=== PATIENT | female | born 1990 | race Caucasian/White ===

== ENCOUNTER 2017-09-23 11:55 | Emergency (ER) | payer MEDICAID ==
[2017-09-23] MEDS ORDERED: ACETAMINOPHEN 325 MG TABLET PO ONE (12:58)
--- NOTE | 2017-09-23 12:59 | ER Document Report ---
ED Extremity Problem, Lower - General Chief Complaint: Foot Injury Stated Complaint: FOOT INJURY Time Seen by Provider: 09/23/17 12:43 Mode of Arrival: Ambulatory Information source: Patient Notes: 27-year-old female presents to ED for complaint of right foot and toe pain. She states she stubbed her toe about 4 days ago and is been having severe pain. She states it does not bruise to the front of her foot. She states she smokes 5 cigarettes a day and drinks once a week. 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 TRAVEL OUTSIDE OF THE [place] IN LAST 30 DAYS: No - HPI Patient complains to provider of: Pain, Swelling Location: Foot, 5th Toe Occurred: Other - 4 days ago Where: Outdoors Onset/Duration: Gradual Quality of pain: Sharp Severity: Severe Pain Level: 5 Context: Stubbed Recent injury: No Associated symptoms: Painful ambulation Exacerbated by: Hanging down, Walking Relieved by: Elevation, Ice - Related Data Allergies/Adverse Reactions: No Known Allergies Allergy (Verified 09/23/17 11:56) Past Medical History - General Information source: Patient - Social History Smoking Status: Current Every Day Smoker Cigarette use (# per day): Yes - 5 per day Chew tobacco use (# tins/day): No Smoking Education Provided: Yes - 4 minutes Frequency of alcohol use: Rare Drug Abuse: None 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 Lives with: Family Family History: Reviewed & Not Pertinent Patient has suicidal ideation: No Patient has homicidal ideation: No - Past Medical History Cardiac Medical History: Reports: None Pulmonary Medical History: Reports: None EENT Medical History: Reports: None Neurological Medical History: Reports: Hx Migraine, Hx Seizures Endocrine Medical History: Reports: None Renal/ Medical History: Reports: None Malignancy Medical History: Reports: None GI Medical History: Reports: None Musculoskeltal Medical History: Reports Hx Musculoskeletal Trauma Skin Medical History: Reports None Psychiatric Medical History: Reports: None Traumatic Medical History: Reports: Hx Fractures Infectious Medical History: Reports: None Past Surgical History: Reports: Hx Inguinal Hernia, Hx Oral Surgery - Immunizations Immunizations up to date: Yes Hx Diphtheria, Pertussis, Tetanus Vaccination: Yes Review of Systems - Review of Systems Constitutional: No symptoms reported EENT: No symptoms reported Cardiovascular: No symptoms reported Respiratory: No symptoms reported Gastrointestinal: No symptoms reported Genitourinary: No symptoms reported Female Genitourinary: No symptoms reported Musculoskeletal: Other - Pain swelling to the right foot where she stubbed her toe 4 days ago Skin: No symptoms reported Hematologic/Lymphatic: No symptoms reported Neurological/Psychological: No symptoms reported -: Yes All other systems reviewed and negative Physical Exam - Vital signs Vitals: Temp Pulse Resp BP Pulse Ox 99.1 F 68 16 110/78 99 09/23/17 12:16 09/23/17 12:16 09/23/17 12:16 09/23/17 12:16 09/23/17 12:16 Interpretation: Normal - General General appearance: Appears well, Alert - HEENT Head: Normocephalic, Atraumatic Eyes: Normal Pupils: PERRL - Respiratory Respiratory status: No respiratory distress Chest status: Nontender Breath sounds: Normal Chest palpation: Normal - Cardiovascular Rhythm: Regular Heart sounds: Normal auscultation Murmur: No - Abdominal Inspection: Normal Distension: No distension Bowel sounds: Normal Tenderness: Nontender Organomegaly: No organomegaly - Back Back: Normal, Nontender - Extremities General upper extremity: Normal inspection, Nontender, Normal color, Normal ROM , Normal temperature General lower extremity: Normal inspection, Normal ROM, Normal temperature, Normal weight bearing. No: Alvin's sign Foot: Tender, Ecchymosis, Edema, Metatarsal compress. pain. No: Abrasion, Deformity, Instability, Laceration, Nail injury, Navicular tenderness, No evidence of FB, Puncture wound, Tender 5th metatarsal, Unable to bear weight - Neurological Neuro grossly intact: Yes Cognition: Normal Orientation: AAOx4 Kayley Coma Scale Eye Opening: Spontaneous Boron Coma Scale Verbal: Oriented Kayley Coma Scale Motor: Obeys Commands Boron Coma Scale Total: 15 Speech: Normal Motor strength normal: LUE, RUE, LLE, RLE Sensory: Normal - Psychological Associated symptoms: Normal affect, Normal mood - Skin Skin Temperature: Warm Skin Moisture: Dry Skin Color: Normal Course - Vital Signs Vital signs: Temp Pulse Resp BP Pulse Ox 98.3 F 50 L 16 132/85 H 100 09/23/17 15:20 09/23/17 15:20 09/23/17 15:20 09/23/17 15:20 09/23/17 15:20 - Diagnostic Test Radiology reviewed: Image reviewed, Reports reviewed Discharge - Discharge Clinical Impression: Contusion of foot including toes Qualifiers: Encounter type: initial encounter Laterality: right Qualified Code(s): S90.31XA - Contusion of right foot, initial encounter Condition: Stable Disposition: HOME, SELF-CARE Additional Instructions: CONTUSION: Your injury has resulted in a contusion -- a crushing of the deep tissues. No injury to important structures was detected during the physician's exam. Contusions vary in the amount of pain they cause, and in the length of time required for healing. Typically, the area will become bruised, and will remain painful to touch for two or three weeks. However, most patients are back to working and playing within a few days. After the initial period of rest and cold-packs, your symptoms (together with the doctor's recommendations) will determine how rapidly you can get back to full activity. Usually this means "do what feels okay, but don't do things that hurt." If re-examination was recommended, it's important to follow up as instructed. Call the doctor or return any time if pain increases, if swelling becomes severe, if you develop numbness or weakness in an injured extremity, or if any other alarming symptoms occur. USE OF TYLENOL (ACETAMINOPHEN): Acetaminophen may be taken for pain relief or fever control. It's much safer than aspirin, offering a wider range of "safe" dosages. It is safe during . Some brand names are Tylenol, Panadol, Datril, Anacin 3, Tempra, and Liquiprin. Acetaminophen can be repeated every four hours. The following are maximum recommended dosages: WEIGHT Dose Drops Elixir Chewable( 80mg) (LBS.) drprs=droppers tsp=teaspoon 6 40 mg 0.4 ml (1/2) 6-11 80 mg 0.8 ml (full) tsp 1 tab 12-16 120 mg 1 1/2 drprs 3/4 tsp 1 1/2 tabs 17-23 160 mg 2 drprs 1 tsp 2 tabs 24-30 240 mg 3 drprs 1 1/2 tsp 3 tabs 30-35 320 mg 2 tsp 4 tabs 36-41 360 mg 2 1/4 tsp 4 1/2 tabs 42-47 400 mg 2 1/2 tsp 5 tabs 48-53 480 mg 3 tsp 6 tabs 54-59 520 mg 3 1/4 tsp 6 1/2 tabs 60-64 560 mg 3 1/2 tsp 7 tabs 65-70 600 mg 3 3/4 tsp 7 1/2 tabs 71-76 640 mg 4 tsp 8 tabs 77-82 720 mg 4 1/2 tsp 9 tabs 83-88 800 mg 5 tsp 10 tabs >89 pounds or adults 650 mg to 900 mg Acetaminophen can be repeated every four hours. Maximum dose not to exceed 4000 mg a day. These maximum recommended dosages are slightly higher than the dosages written on the product container, but these dosages are very safe and below the toxic dosage for acetaminophen. ICE & ELEVATION: Apply ice packs frequently against the painful area. Many different schedules are recommended, such as "20 minutes on, 20 minutes off" or "one hour ice, two hours rest." If you need to work, you may need to go longer between ice treatments. You should plan to have the area ice packed AT LEAST one- fourth of the time. The ice should be applied over the wrap, tape, or splint, or over a layer of cloth -- not directly against the skin. Some ice bags have a built-in cloth and can be put directly on the skin. Your injured part should be elevated as much as possible over the next 48 hours. Try to keep the injury above the level of the heart. Avoid use of the injured area. Elevation and rest will decrease the swelling. USE OF TWRC-LJE-SEPWLUA IBUPROFEN: Ibuprofen (Advil, Nuprin, Medipren, Motrin IB) is a medication for fever and pain control. In addition, it has anti- inflammatory effects which may be beneficial, especially in the treatment of injuries. It's best to take ibuprofen with food. Persons with ulcer disease or allergy to aspirin should notify their physician of this before taking ibuprofen. Ibuprofen can be given every four to six hours, for a total of four doses daily. Age Pain or fever dose Antiinflammatory dose 6-8 yr 200 mg (1 tab) 200 mg (1 tab) 9-11 yr 200 mg (1 tab) 200-400 mg (1-2 tab) 11-14 yr 200-400 mg (1-2 tab) 400 mg (2 tab) 15-adult 400 mg (2 tab) 600 mg (3 tab) FOLLOW-UP CARE: If you have been referred to a physician for follow-up care, call the physician s office for an appointment as you were instructed or within the next two days. If you experience worsening or a significant change in your symptoms, notify the physician immediately or return to the Emergency Department at any time for re-evaluation. Forms: Return to Work Referrals: DIANDRA ASCENCIO DPM [ACTIVE STAFF] - Follow up as needed JESS RUBIO MD [ACTIVE STAFF] - Follow up as needed
--- NOTE | 2017-09-23 14:11 | RADIOLOGY REPORT (SQ) ---
EXAM DESCRIPTION: FOOT RIGHT COMPLETE COMPLETED DATE/TIME: 09/23/2017 1:19 pm REASON FOR STUDY: pain injury swelling COMPARISON: None. NUMBER OF VIEWS: Three views. TECHNIQUE: AP, lateral and oblique radiographic images acquired of the right foot. LIMITATIONS: None. FINDINGS: MINERALIZATION: Normal. BONES: No acute fracture or dislocation. No worrisome bone lesions. JOINTS: No effusions. SOFT TISSUES: No soft tissue swelling. No foreign body. OTHER: No other significant finding. IMPRESSION: NEGATIVE STUDY OF THE RIGHT FOOT. NO RADIOGRAPHIC EVIDENCE OF ACUTE INJURY. TECHNICAL DOCUMENTATION: JOB ID: [id number] [email or web address]- All Rights Reserved Reading location - IP/workstation name: [email or web address]
[2017-09-23 15:21] VITALS: BP 132/85
== END 2017-09-23 15:21 | disposition home or self-care (01) ==
LOC: ER 11:55
DX: S90.31XA Contusion of right foot, initial encounter (principal); M79.671 Pain in right foot; M79.674 Pain in right toe(s); M79.89 Other specified soft tissue disorders; W22.8XXA Striking against or struck by other objects, initial encounter; F17.210 Nicotine dependence, cigarettes, uncomplicated
CPT/HCPCS: 99406; 99283; 73630; J3490

== ENCOUNTER 2017-11-28 09:56 | Emergency (ER) | payer SELFPAY ==
--- NOTE | 2017-11-28 10:08 | ER Document Report ---
ED Medical Screen (RME) - General Chief Complaint: Vag Bleeding, +preg <12wks Stated Complaint: VAGINAL BLEEDING Time Seen by Provider: 11/28/17 10:06 Mode of Arrival: Ambulatory Information source: Patient Notes: This is a 27-year-old female 5 para 2 (2 miscarriages, one at 20 weeks gestation) who presents with vaginal bleeding and cramping in the setting of early . Patient's blood type is a positive. Patient last ate last night. She has no medical problems, no allergies and is on no medicines. TRAVEL OUTSIDE OF THE [place] IN LAST 30 DAYS: No - Related Data Allergies/Adverse Reactions: No Known Allergies Allergy (Verified 11/28/17 09:56) Past Medical History Neurological Medical History: Reports: Hx Migraine, Hx Seizures Renal/ Medical History: Denies: Hx Peritoneal Dialysis Musculoskeltal Medical History: Reports Hx Musculoskeletal Trauma Traumatic Medical History: Reports: Hx Fractures Past Surgical History: Reports: Hx Inguinal Hernia, Hx Oral Surgery - Immunizations Immunizations up to date: Yes Hx Diphtheria, Pertussis, Tetanus Vaccination: Yes Physical Exam - Vital signs Vitals: Temp Pulse Resp BP Pulse Ox 98.8 F 71 14 113/75 98 11/28/17 09:59 11/28/17 09:59 11/28/17 09:59 11/28/17 09:59 11/28/17 09:59 Course - Vital Signs Vital signs: Temp Pulse Resp BP Pulse Ox 98.8 F 71 14 113/75 98 11/28/17 09:59 11/28/17 09:59 11/28/17 09:59 11/28/17 09:59 11/28/17 09:59
[2017-11-28 10:40] LABS: ABSOLUTE EOSINOPHILS # (AUTO) 0.3 10^3/uL (0.0-0.6); ABSOLUTE LYMPHOCYTES (AUTO) 1.4 10^3/uL (0.5-4.7); ABSOLUTE MONOCYTES (AUTO) 0.5 10^3/uL (0.1-1.4); ABSOLUTE NEUT (AUTO) 3.9 10^3/uL (1.7-8.2); BASOPHILS % (AUTO) 0.5 % (0-2); EOSINOPHILS % (AUTO) 5.7 % (0-6); HEMATOCRIT 44.1 % (36.0-47.0); HEMOGLOBIN 15.2 g/dL (12.0-15.5); LYMPHOCYTES % (AUTO) 22.1 % (13-45); MEAN CORPUSCULAR HEMOGLOBIN 31.4 pg (27.0-33.4); MEAN CORPUSCULAR HGB CONC 34.4 g/dL (32.0-36.0); MEAN CORPUSCULAR VOLUME 91 fl (80-97); MONOCYTES % (AUTO) 8.5 % (3-13); PLATELET COUNT 302 10^3/uL (150-450); RED BLOOD COUNT 4.84 10^6/uL (3.72-5.28); RED CELL DISTRIBUTION WIDTH 13.3 % (11.5-14.0); SEGMENTED NEUTROPHILS % (AUTO) 63.2 % (42-78); TOTAL CELLS COUNTED % (AUTO) 100 %; WHITE BLOOD COUNT 6.1 10^3/uL (4.0-10.5)
[2017-11-28 11:16] LABS: APPEARANCE,URINE SLIGHTLY-CLOUDY; BILIRUBIN,URINE NEGATIVE (NEGATIVE); COLOR,URINE YELLOW; GLUCOSE, URINE NEGATIVE (NEGATIVE); KETONES,URINE NEGATIVE (NEGATIVE); LEUKOCYTE ESTERASE,URINE TRACE (NEGATIVE); NITRITE,URINE NEGATIVE (NEGATIVE); PROTEIN,URINE NEGATIVE (NEGATIVE); URINE SPECIFIC GRAVITY 1.025
--- NOTE | 2017-11-28 12:00 | RADIOLOGY REPORT (SQ) ---
EXAM DESCRIPTION: U/S OB TRANSVAGINAL W/O DOP COMPLETED DATE/TIME: 11/28/2017 11:17 am REASON FOR STUDY: vag bleed preg COMPARISON: 11/19/2012 TECHNIQUE: Transvaginal static and realtime grayscale images acquired of the pelvis. Additional collins cted spectral and color Doppler images recorded. All images stored on PACs. bHCG: Pending. CLINICAL DATES: Not Available. LIMITATIONS: None. FINDINGS: FETUS: No intrauterine gestational sac visualized. UTERUS: No masses. No anomalies. Measures 11.0 x 4.7 x 6.6 cm. Endometrium measures 9 mm. CERVICAL LENGTH: 3.6 cm Closed. RIGHT ADNEXA: Right ovary not visualized LEFT ADNEXA: Left ovary not visualized FREE FLUID: None. OTHER: No other significant finding. IMPRESSION: 1. An intrauterine gestational sac is not visualized. Recommend correlation with beta hCGs and short -term sonographic follow-up. 2. Nonvisualization of the ovaries. Trimester of : First - 0 to 13 weeks. TECHNICAL DOCUMENTATION: JOB ID: [id number] [email or web address]- All Rights Reserved rev-08/28 Reading location - IP/workstation name: [email or web address]
--- NOTE | 2017-11-28 12:29 | ER Document Report ---
ED General - General Chief Complaint: Vag Bleeding, +preg <12wks Stated Complaint: VAGINAL BLEEDING Time Seen by Provider: 11/28/17 10:06 Mode of Arrival: Ambulatory TRAVEL OUTSIDE OF THE [place] IN LAST 30 DAYS: No - HPI Patient complains to provider of: Vaginal bleeding positive Notes: Patient coming in for positive test and vaginal bleeding. Patient states she took a home for urgency test approximately 1 week ago and started expressing vaginal bleeding today. Patient states she is having significant abdominal cramping with passage of large blood clots. Patient denies any nausea vomiting fevers or chills. Patient resting company for my evaluation. Patient states bleeding started earlier this morning. - Related Data Allergies/Adverse Reactions: No Known Allergies Allergy (Verified 11/28/17 09:56) Past Medical History - General Information source: Patient - Social History Smoking Status: Current Some Day Smoker Frequency of alcohol use: None Drug Abuse: Marijuana Family History: Reviewed & Not Pertinent Patient has suicidal ideation: No Patient has homicidal ideation: No Neurological Medical History: Reports: Hx Migraine, Hx Seizures Renal/ Medical History: Denies: Hx Peritoneal Dialysis Musculoskeletal Medical History: Reports Hx Musculoskeletal Trauma Traumatic Medical History: Reports: Hx Fractures Past Surgical History: Reports: Hx Inguinal Hernia, Hx Oral Surgery - Immunizations Immunizations up to date: Yes Hx Diphtheria, Pertussis, Tetanus Vaccination: Yes Review of Systems - Review of Systems Constitutional: No symptoms reported EENT: No symptoms reported Cardiovascular: No symptoms reported Respiratory: No symptoms reported Gastrointestinal: No symptoms reported Genitourinary: No symptoms reported Female Genitourinary: Vaginal bleeding Musculoskeletal: No symptoms reported Skin: No symptoms reported Hematologic/Lymphatic: No symptoms reported Neurological/Psychological: No symptoms reported -: Yes All other systems reviewed and negative Physical Exam - Vital signs Vitals: Temp Pulse Resp BP Pulse Ox 98.8 F 71 14 113/75 98 11/28/17 09:59 11/28/17 09:59 11/28/17 09:59 11/28/17 09:59 11/28/17 09:59 Interpretation: Normal - General General appearance: Appears well, Alert - HEENT Head: Normocephalic, Atraumatic Eyes: Normal Pupils: PERRL - Respiratory Respiratory status: No respiratory distress Chest status: Nontender Breath sounds: Normal Chest palpation: Normal - Cardiovascular Rhythm: Regular Heart sounds: Normal auscultation Murmur: No - Abdominal Inspection: Normal Distension: No distension Bowel sounds: Normal Tenderness: Nontender Organomegaly: No organomegaly - Back Back: Normal, Nontender - Extremities General upper extremity: Normal inspection, Nontender, Normal color, Normal ROM , Normal temperature General lower extremity: Normal inspection, Nontender, Normal color, Normal ROM , Normal temperature, Normal weight bearing. No: Alvin's sign - Neurological Neuro grossly intact: Yes Cognition: Normal Orientation: AAOx4 Joanna Coma Scale Eye Opening: Spontaneous Joanna Coma Scale Verbal: Oriented Kayley Coma Scale Motor: Obeys Commands Kayley Coma Scale Total: 15 Speech: Normal Motor strength normal: LUE, RUE, LLE, RLE Sensory: Normal - Psychological Associated symptoms: Normal affect, Normal mood - Skin Skin Temperature: Warm Skin Moisture: Dry Skin Color: Normal Course - Re-evaluation Re-evalutation: 11/28/17 15:38 Patient coming in for a positive home pending test and vaginal bleeding. Patient has no signs of present hormone and her blood work and a negative ultrasound. Unclear if this is patient's normal menstrual cycle or if the patient did have a miscarriage however patient is very insistent that she had a positive test at home. There is my suspicion is this case and the more likely she miscarried patient will be discharged on follow-up with HOSTEL MANAGER. - Vital Signs Vital signs: Temp Pulse Resp BP Pulse Ox 98.8 F 71 14 113/75 98 11/28/17 09:59 11/28/17 09:59 11/28/17 09:59 11/28/17 09:59 11/28/17 09:59 - Laboratory Result Diagrams: 11/28/17 10:28 Laboratory results interpreted by me: 11/28/17 10:45 Urine Blood LARGE H Urine Urobilinogen 2.0 H Ur Leukocyte Esterase TRACE H Discharge - Discharge Clinical Impression: Miscarriage Condition: Good Disposition: HOME, SELF-CARE Instructions: Miscarriage (OM) Additional Instructions: Your laboratory studies today and ultrasound that showed any signs of . More likely year he had experienced a miscarriage. Please follow- up with your HOSTEL MANAGER and return to the ER symptoms worsen. I would recommend taking Tylenol and Motrin for pain. I will prescribe you Zofran for nausea and Bentyl for abdominal cramping. Prescriptions: Dicyclomine HCl [Bentyl 20 mg Tablet] 20 mg PO QID #30 tablet Ondansetron [Zofran Odt] 4 mg PO Q6 PRN #30 tab.rapdis PRN Reason: For Nausea/Vomiting Forms: Return to Work
[2017-11-28 12:54] VITALS: BP 109/61
== END 2017-11-28 12:52 | disposition home or self-care (01) ==
LOC: ER 09:56
DX: O03.9 Complete or unspecified spontaneous abortion without complication (principal); R10.9 Unspecified abdominal pain; F12.10 Cannabis abuse, uncomplicated
CPT/HCPCS: 36415; 76817; 81001; 84702; 85025; 99284

== ENCOUNTER 2018-04-06 14:12 | Emergency (ER) | payer SELFPAY ==
[2018-04-06 14:20] VITALS: BP 114/76
[2018-04-06] MEDS ORDERED: LORATADINE 10 MG TABLET PO ONE (14:54)
[2018-04-06] MEDS ORDERED: GUAIFENESIN 600 MG TABLET.SA PO ONE (14:54)
[2018-04-06] MEDS ORDERED: PSEUDOEPHEDRINE HCL 30 MG TABLET PO ONE (14:54)
--- NOTE | 2018-04-06 15:05 | ER Document Report ---
ED ENT - General Chief Complaint: Cough Stated Complaint: COUGH Time Seen by Provider: 04/06/18 14:43 Mode of Arrival: Ambulatory Information source: Patient Notes: 27-year-old female presented to ED for cough cold congestion runny nose and pain to the right ear for 3 weeks. She states she has some amoxicillin left over from something within the last 6 months but she does not remember what but she did not think she needed anymore so she quit taking it. She states she took Mucinex for a while and it did not seem to help and she took ibuprofen that is not seem to help so she came to the emergency room today on [place]. Patient is alert oriented respirations regular and unlabored O2 sats 98% afebrile. TRAVEL OUTSIDE OF THE [place] IN LAST 30 DAYS: No - HPI Patient complains to provider of: Ear problem, Nose problem Onset: Other - 3 weeks Onset/Duration: Gradual Severity: Mild Pain Level: 2 Context: Recent Illness Location of pain: Ears, Nose, Sinus Associated symptoms: Congestion, Cough, Ear pain - Right ear, Runny nose, Sinus pain, Sinus drainage. 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 Lives with: Family, Parents Family History: Reviewed & Not Pertinent Patient has suicidal ideation: No Patient has homicidal ideation: No - Past Medical History Cardiac Medical History: Reports: None Pulmonary Medical History: Reports: None EENT Medical History: Reports: None Neurological Medical History: Reports: Hx Migraine, Hx Seizures Endocrine Medical History: Reports: None Renal/ Medical History: Reports: None Malignancy Medical History: Reports: None GI Medical History: Reports: None Musculoskeletal Medical History: Reports Hx Musculoskeletal Trauma - Finger fracture Skin Medical History: Reports None Psychiatric Medical History: Reports: None Traumatic Medical History: Reports: Hx Fractures - Finger Infectious Medical History: Reports: None Past Surgical History: Reports: Hx Inguinal Hernia, Hx Oral Surgery - Immunizations Immunizations up to date: Yes Hx Diphtheria, Pertussis, Tetanus Vaccination: Yes Review of Systems - Review of Systems Constitutional: Recent illness EENT: Ear pain, Nose congestion, Nose discharge, Sinus pressure, Sinus discharge Cardiovascular: No symptoms reported Respiratory: Cough Gastrointestinal: No symptoms reported Genitourinary: No symptoms reported Female Genitourinary: No symptoms reported Musculoskeletal: No symptoms reported Skin: No symptoms reported Hematologic/Lymphatic: No symptoms reported Neurological/Psychological: No symptoms reported -: Yes All other systems reviewed and negative Physical Exam - Vital signs Vitals: Temp Pulse Resp BP Pulse Ox 98.7 F 83 20 114/76 98 04/06/18 14:18 04/06/18 14:18 04/06/18 14:18 04/06/18 14:18 04/06/18 14:18 Interpretation: Normal - General General appearance: Appears well, Alert - HEENT Head: Normocephalic, Atraumatic Eyes: Normal Pupils: PERRL Ears: Normal External canal: Normal Sinus: Normal Nasal: Purulent discharge, Swelling Mouth/Lips: Normal Mucous membranes: Normal Pharynx: Post nasal drainage Neck: Normal - Respiratory Respiratory status: No respiratory distress Chest status: Nontender Breath sounds: Nonproductive cough Chest palpation: Normal - Cardiovascular Rhythm: Regular Heart sounds: Normal auscultation Murmur: No - Abdominal Inspection: Normal Distension: No distension Bowel sounds: Normal Tenderness: Nontender Organomegaly: No organomegaly - Back Back: Normal, Nontender - Extremities General upper extremity: Normal inspection, Nontender, Normal color, Normal ROM, Normal temperature General lower extremity: Normal inspection, Nontender, Normal color, Normal ROM, Normal temperature, Normal weight bearing. No: Alvin's sign - Neurological Neuro grossly intact: Yes Cognition: Normal Orientation: AAOx4 [place] Coma Scale Eye Opening: Spontaneous [place] Coma Scale Verbal: Oriented [place] Coma Scale Motor: Obeys Commands [place] Coma Scale Total: 15 Speech: Normal Motor strength normal: LUE, RUE, LLE, RLE Sensory: Normal - Psychological Associated symptoms: Normal affect, Normal mood - Skin Skin Temperature: Warm Skin Moisture: Dry Skin Color: Normal Course - Re-evaluation Re-evalutation: 04/06/18 15:17 Assessment consistent with an upper respiratory infection. At first patient wanted a chest x-ray and then she decided since her children were waiting in the car that she did not want to just x-rays of the chest x-ray was canceled. Patient has a upper respiratory infection and her lungs were clear. After performing a Medical Screening Examination, I estimate there is LOW risk for ACUTE CORONARY SYNDROME, RESPIRATORY FAILURE, SEPSIS OR MENINGITIS, thus I consider the discharge disposition reasonable. I have reevaluated this patient multiple times and no significant life threatening changes are noted. The patient and I have discussed the diagnosis and risks, and we agree with discharging home with close follow-up. We also discussed returning to the Emergency Department immediately if new or worsening symptoms occur. We have discussed the symptoms which are most concerning (e.g., changing or worsening pain, trouble swallowing or breathing, neck stiffness, fever) that necessitate immediate return. - Vital Signs Vital signs: Temp Pulse Resp BP Pulse Ox 98.7 F 83 20 114/76 98 04/06/18 14:18 04/06/18 14:18 04/06/18 14:18 04/06/18 14:18 04/06/18 14:18 Discharge - Discharge Clinical Impression: URI (upper respiratory infection) Qualifiers: URI type: unspecified URI Qualified Code(s): J06.9 - Acute upper respiratory infection, unspecified Condition: Stable Disposition: HOME, SELF-CARE Instructions: Family Physicians / Practices Additional Instructions: UPPER RESPIRATORY ILLNESS: You have a viral infection of the respiratory passages -- a "cold." This common infection causes nasal congestion, drainage, and often sore throat and cough. It is highly contagious. The disease usually lasts about 10 to 14 days. There is no "cure" for the viral infection -- it must run its course. If there is a complication, such as bacterial infection in the nose, sinuses, middle ear, or bronchial tubes, antibiotics may be required. The antibiotics won't affect the virus. Drink plenty of fluids. A humidifier may help. An expectorant medication or decongestant may make you more comfortable. Use acetaminophen or ibuprofen for fever or aches. See the doctor if fever persists over two days, if there is any significant worsening of your symptoms, or if you simply fail to improve as expected. DECONGESTANT MEDICATION: A decongestant medicine has been suggested. Often this medicine is combined in the same tablet with an antihistamine or expectorant. This type of medicine is helpful in treating a bad cold or sinus condition, as well as in treatment of the nasal congestion of hay fever. It is not of much benefit for lung infections. Decongestant medicines are related to stimulants. They can cause an increase in blood pressure and heart rate. Persons with heart disease and high blood pressure should not take decongestants without discussing this with the physician. If you develop palpitations, chest pain, headache, or tremors, stop the medicine and consult your physician. COUGH-SUPPRESSANT & EXPECTORANT MEDICATION: You are to use a cough medication as needed for relief of symptoms. This medicine is a combination of an expectorant (to make the mucous thinner and more easily "coughed up") and a cough suppressant (to reduce the frequency of coughing). The cough-suppressant medicine is related to narcotics. You may experience mild nausea and sleepiness. Some patients who are very sensitive to narcotics may have stomach pain from this medicine. Taking the medicine with food reduces these side effects. Do not drive or work with machinery until you know how this medicine affects you. The expectorant should have no side effects. Iodine-containing expectorants (such as organidin) should not be taken by persons with active thyroid disease unless approved by your doctor. Call the doctor if you develop shortness of breath, hives, rash, itching, lightheadedness, or severe nausea and vomiting. USE OF ACETAMINOPHEN (Tylenol): Acetaminophen may be taken for pain relief or fever control. It's much safer than aspirin, offering a wider range of "safe" dosages. It is safe during . Some brand names are Tylenol, Panadol, Datril, Anacin 3, Tempra, and Liquiprin. Acetaminophen can be repeated every four hours. The following are maximum recommended dosages: >89 pounds or adults 650 mg to 900 mg Acetaminophen can be repeated every four hours. Maximum dose not to exceed 4000 mg a day. SMOKING: If you smoke, you should stop smoking. The tar and chemicals in cigarette smoke are harmful. Smoking has been shown to cause: emphysema chronic bronchitis lung cancer mouth and throat cancer stomach and pancreas cancer premature aging defects In addition, smoking increases ear and lung infections in children of smokers. You have been treated with Claritin 10 mg, Sudafed 30 mg, Mucinex 600 mg in the emergency room. You have elected not to have a chest x-ray at this time as your lungs are clear. These are all [id number] medications another thing that would help you would be some Flonase nasal spray. This is a steroid that will help the inflammation in your nasal passage. Also Chloraseptic spray will help with your sore throat. Salt and soda gargles will help with the drainage down the back your throat. Salt and soda solution 1 quart of water 1 tablespoon of salt 1 teaspoon of baking soda Mixed 3 ingredients together and boil for 1 minute Placed in a covered quart jar Use 1/2 ounce of cold solution to gargle 3 times a day FOLLOW-UP CARE: If you have been referred to a physician for follow-up care, call the physicians office for an appointment as you were instructed or within the next two days. If you experience worsening or a significant change in your symptoms, notify the physician immediately or return to the Emergency Department at any time for re-evaluation. Forms: Smoking Cessation Education
== END 2018-04-06 15:11 | disposition home or self-care (01) ==
LOC: ER 14:12
DX: J06.9 Acute upper respiratory infection, unspecified (principal); F17.210 Nicotine dependence, cigarettes, uncomplicated
CPT/HCPCS: 99283; 99406

== ENCOUNTER 2018-06-27 15:19 | Emergency (ER) | payer SELFPAY ==
--- NOTE | 2018-06-27 15:50 | ER Document Report ---
ED Medical Screen (RME) - General Chief Complaint: Vaginal Discharge Stated Complaint: INFECTION Time Seen by Provider: 06/27/18 15:47 Notes: Patient is concerned that she may have a retained tampon. She thinks that the tampon has been in her vagina for 4-5 days. She has had some cramping, but no real significant pain. She has had a small amount of foul-smelling discharge at times. No other significant past medical history. TRAVEL OUTSIDE OF THE [place] IN LAST 30 DAYS: No - Related Data Allergies/Adverse Reactions: No Known Allergies Allergy (Verified 04/06/18 14:13) Past Medical History Neurological Medical History: Reports: Hx Migraine, Hx Seizures Renal/ Medical History: Denies: Hx Peritoneal Dialysis Musculoskeltal Medical History: Reports Hx Musculoskeletal Trauma - Finger fracture Traumatic Medical History: Reports: Hx Fractures - Finger Past Surgical History: Reports: Hx Abdominal Surgery - hernia, Hx Inguinal Hernia, Hx Oral Surgery - Immunizations Immunizations up to date: Yes Hx Diphtheria, Pertussis, Tetanus Vaccination: Yes Physical Exam - Vital signs Vitals: Temp Pulse Resp BP Pulse Ox 98.4 F 90 20 144/89 H 99 06/27/18 15:22 06/27/18 15:22 06/27/18 15:22 06/27/18 15:22 06/27/18 15:22 Course - Vital Signs Vital signs: Temp Pulse Resp BP Pulse Ox 98.4 F 90 20 144/89 H 99 06/27/18 15:22 06/27/18 15:22 06/27/18 15:22 06/27/18 15:22 06/27/18 15:22
--- NOTE | 2018-06-27 16:39 | ER Document Report ---
ED General - General Chief Complaint: Vaginal Discharge Stated Complaint: INFECTION Time Seen by Provider: 06/27/18 15:47 Notes: Patient is a 27-year-old female who presents emergency department with a chief complaint of a tampon stuck in her vagina. She is 90% sure that she has a tampon stuck in there. She states that the tampon has been in for the past 5 days. She states that she stopped her period about 3 days ago. She denies any abdominal pain, fever, nausea, vomiting, or diarrhea. She admits to having a foul odor and clear drainage from the area. She states that she has been sexually active about a month ago, with her who is apparently in penitentiary. She has no concerns for any STDs at this time, but is concerned about a possible yeast infection. TRAVEL OUTSIDE OF THE [place] IN LAST 30 DAYS: No - Related Data Allergies/Adverse Reactions: No Known Allergies Allergy (Verified 04/06/18 14:13) Past Medical History - Social History Smoking Status: Current Every Day Smoker Family History: Reviewed & Not Pertinent Patient has suicidal ideation: No Patient has homicidal ideation: No Neurological Medical History: Reports: Hx Migraine, Hx Seizures Renal/ Medical History: Denies: Hx Peritoneal Dialysis Musculoskeletal Medical History: Reports Hx Musculoskeletal Trauma - Finger fracture Traumatic Medical History: Reports: Hx Fractures - Finger Past Surgical History: Reports: Hx Abdominal Surgery - hernia, Hx Inguinal Hernia, Hx Oral Surgery - Immunizations Immunizations up to date: Yes Hx Diphtheria, Pertussis, Tetanus Vaccination: Yes Review of Systems - Review of Systems Notes: REVIEW OF SYSTEMS: CONSTITUTIONAL : Denies recent illness. Denies recent unintentional weight loss. Denies fever, chills, or sweats. EENT: Denies eye, ear, throat, or mouth pain, discharge, or symptoms. Denies nasal or sinus congestion. CARDIOVASCULAR: Denies chest pain. RESPIRATORY: Denies shortness of breath, cough, congestion, difficulty breathing, or wheezing. GASTROINTESTINAL: Denies nausea, vomiting, and diarrhea. Denies abdominal pain. Denies constipation. GENITOURINARY: Denies difficulty urinating, burning, blood in urine, urgency or frequency. FEMALE GENITOURINARY: See HPI. LMP about a week ago MUSCULOSKELETAL: Denies neck and back pain. Denies joint pain or swelling. SKIN: Denies rash, itchiness, or lesions HEMATOLOGIC : Denies easy bruising or bleeding. LYMPHATIC: Denies swollen, painful, enlarged glands. NEUROLOGICAL: Denies no numbness or tingling denies weakness. Denies headache. Denies altered mental status. Denies alteration in speech. PSYCHIATRIC: Denies stress, anxiety, alteration in sleep patterns, or depression. All other systems reviewed and negative. Physical Exam - Vital signs Vitals: Temp Pulse Resp BP Pulse Ox 98.4 F 90 20 144/89 H 99 06/27/18 15:22 06/27/18 15:22 06/27/18 15:22 06/27/18 15:22 06/27/18 15:22 - Notes Notes: PHYSICAL EXAMINATION: GENERAL: Appears well, healthy, well-nourished, no acute distress. HEAD: Normocephalic, atraumatic. EYES: PERRL, conjunctiva normal, all extraocular movements intact, sclera nonicteric ENT: Moist mucous membranes. NECK: Supple, no noticeable swelling, redness, rash. Normal range of motion. LUNGS: Equal breath sounds bilaterally and clear to auscultation. No wheezes rales or rhonchi. CARDIOVASCULAR: S1-S2, regular rate, regular rhythm. Radial pulses 2+, normal. ABDOMEN: Normoactive bowel sounds. Soft, nontender, no guarding, no rebound tenderness, and no masses palpated. EXTREMITIES: Normal strength and range of motion, no pitting or edema. No cyanosis. NEUROLOGICAL: Moves all extremities upon command. Strength 5/5 in all extremities. PSYCH: Normal mood, normal affect. SKIN: Warm, dry. No rash, lesions, ulcerations noted. Normal skin turgor. MAINFRAME PROGRAMMER: Copious amount of discharge noted. Cervical motion tenderness noted. Course - Re-evaluation Re-evalutation: 06/27/18 16:50 Patient's gynecological exam did not show tampon in there there was some yellowish/greenish discharge noted. Cervical motion tenderness was noted. No adnexal pain noted. The patient then later admitted to me that she had had another sexual partner about a month ago. A wet mount was sent and gonorrhea and chlamydia was sent. She will be empirically treated for gonorrhea and chlamydia. She will also be treated for pelvic inflammatory disease with Flagyl and doxycycline. Will await wet mount results to see if patient has yeast present. Patient does not have yeast noted on her wet mount. As stated earlier, patient will be empirically treated for gonorrhea and chlamydia. Patient is in agreement with this plan and has been provided a Good Rx coupon so she can afford her medication. Verbal discharge instructions were given to the patient. They verbalized understanding. They are stable for discharge. - Vital Signs Vital signs: Temp Pulse Resp BP Pulse Ox 98.4 F 90 20 144/89 H 99 06/27/18 15:22 06/27/18 15:22 06/27/18 15:22 06/27/18 15:22 06/27/18 15:22 Discharge - Discharge Clinical Impression: Pelvic inflammatory disease (PID) Condition: Stable Disposition: HOME, SELF-CARE Additional Instructions: You were seen today in the emergency department for vaginal discharge. There is no tampon seen on your exam. You have been diagnosed with pelvic inflammatory disease. You have been given 2 antibiotics. Make sure you finish all your antibiotics as prescribed. You have also been treated here in the emergency department for gonorrhea and chlamydia. There is no yeast on your labs. Please do not have sex for the next week. If your gonorrhea and Chlamydia results are positive, your sexual partners need to be tested and treated. If you have worsening symptoms, develop worsening abdominal pain, develop a fever greater than 100.4 F, or have any symptoms that are worrisome to you, please return to the emergency department. Prescriptions: Doxycycline Hyclate 100 mg PO BID #28 capsule Metronidazole [Flagyl 500 mg Tablet] 500 mg PO Q6H #28 tablet
[2018-06-27 17:08] LABS: BACTERIA (WET MOUNT) 3+ BACTERIA SEEN; RBCS (WET MOUNT) FEW RBCS SEEN; T.VAGINALIS (WET MOUNT) NO TRICHOMONAS SEEN; WBCS (WET MOUNT) 3+ WBCS SEEN; YEAST (WET MOUNT) NO YEAST SEEN
[2018-06-27] MEDS ORDERED: CEFTRIAXONE INJ 250 MG VIAL IM ONE (17:10)
[2018-06-27] MEDS ORDERED: AZITHROMYCIN 250 MG TABLET PO ONE (17:10)
[2018-06-27] MEDS ORDERED: LIDOCAINE 1% INJ-PF (10 MG/ML) 30 ML SDV INJ ONE (17:10)
[2018-06-27 18:00] VITALS: BP 128/83
[2018-06-27 19:29] LABS: CHLAM PCR NOT DETECTED (NOT DETECT); GON PCR NOT DETECTED (NOT DETECT)
== END 2018-06-27 17:40 | disposition home or self-care (01) ==
LOC: ER 15:19
DX: N73.9 Female pelvic inflammatory disease, unspecified (principal); N89.8 Other specified noninflammatory disorders of vagina; F17.200 Nicotine dependence, unspecified, uncomplicated
CPT/HCPCS: 99283; 96372; 87210; 87491; 87591; J3490; J0696

== ENCOUNTER 2020-02-06 10:04 | Emergency (ER) | payer SELFPAY ==
[2020-02-06 10:26] VITALS: BP 115/73
--- NOTE | 2020-02-06 10:28 | ER Document Report ---
HPI - HPI Patient complains to provider of: Yeast infection Time Seen by Provider: 02/06/20 10:21 Onset: Other - 3 days Onset/Duration: Persistent Quality of pain: Burning Context: Patient presents complaining of yeast infection. Patient does report rash to perineum. Patient states she took some leftover clindamycin and attempt to treat it although this seemed to worsen the rash. Patient does report mild vaginal discharge. Patient has been attempting to treat symptoms with use of baking soda baths. Associated Symptoms: Other - Rash to perineum Exacerbated by: Denies Relieved by: Denies Similar symptoms previously: No Recently seen / treated by doctor: No - ROS ROS below otherwise negative: Yes Systems Reviewed and Negative: Yes All other systems reviewed and negative - CONSTITUTIONAL Constitutional: DENIES: Fever, Chills - GASTROINTESTINAL Gastrointestinal: DENIES: Abdominal Pain, Nausea - URINARY Urinary: DENIES: Dysuria - REPRODUCTIVE Reproductive: DENIES: : Past Medical History - General Information source: Patient - Social History Smoking Status: Current Every Day Smoker Frequency of alcohol use: None Drug Abuse: None Occupation: [employer] Family History: Reviewed & Not Pertinent Neurological Medical History: Reports: Hx Migraine, Hx Seizures Renal/ Medical History: Denies: Hx Peritoneal Dialysis Musculoskeletal Medical History: Reports Hx Musculoskeletal Trauma - Finger fracture Traumatic Medical History: Reports: Hx Fractures - Finger Past Surgical History: Reports: Hx Herniorrhaphy, Hx Inguinal Hernia, Hx Oral Surgery - Immunizations Immunizations up to date: Yes Hx Diphtheria, Pertussis, Tetanus Vaccination: Yes Vertical Provider Document - CONSTITUTIONAL Agree With Documented VS: Yes Exam Limitations: No Limitations General Appearance: WD/WN, No Apparent Distress - INFECTION CONTROL TRAVEL OUTSIDE OF THE [place] IN LAST 30 DAYS: No - HEENT HEENT: Atraumatic, Normocephalic - NECK Neck: Normal Inspection, Supple - RESPIRATORY Respiratory: Breath Sounds Normal, No Respiratory Distress - CARDIOVASCULAR Cardiovascular: Regular Rate, Regular Rhythm - REPRODUCTIVE Female Genitalia: negative: CMT, Adnexal Pain-Right, Adnexal Pain-Left Notes: Very minimal white vaginal discharge, patient with faint scaling erythematous rash to perineum, PCT Lynette as standby - BACK Back: Normal Inspection - MUSCULOSKELETAL/EXTREMETIES Musculoskeletal/Extremeties: LAURO NEFF - NEURO Level of Consciousness: Awake, Alert, Appropriate Motor/Sensory: No Motor Deficit - DERM Integumentary: Warm, Dry Course - Re-evaluation Re-evalutation: 02/06/20 11:32 Suspect likely fungal infection to the perineum, no yeast noted on wet prep. - Laboratory Laboratory results interpreted by me: 02/06/20 11:31 Labs- All tests 24 hr 02/06/20 02/06/20 10:35 10:55 Urine Color YELLOW Urine Appearance SLIGHTLY-CLOUDY Urine pH 5.0 Ur Specific [place] 1.015 Urine Protein NEGATIVE Urine Glucose (UA) NEGATIVE Urine Ketones TRACE H Urine Blood NEGATIVE Urine Nitrite NEGATIVE Urine Bilirubin NEGATIVE Urine Urobilinogen NEGATIVE Ur Leukocyte Esterase MODERATE H Urine WBC (Auto) 4 Urine RBC (Auto) 3 Squamous Epi Cells Auto 6 Urine Mucus (Auto) RARE Urine Ascorbic Acid NEGATIVE Urine HCG, Qual NEGATIVE Trichomonas (Wet Prep) NO TRICHOMONAS SEEN Vaginal WBC 1+ WBCS SEEN Vaginal RBC FEW RBCS SEEN Vaginal Yeast NO YEAST SEEN Discharge - Discharge Clinical Impression: Skin rash Condition: Stable Disposition: HOME, SELF-CARE Instructions: Skin Fungus ([facility]) Additional Instructions: Return immediately for any new or worsening symptoms Followup with your primary care provider, call tomorrow to make a followup appointment Cultures are pending, we will call if you need any different treatment Prescriptions: Clotrimazole [Clotrimazole-7] 1 applic TOP DAILY #45 [email or web address] Forms: Return to Work Referrals: [facility] [Provider Group] - Follow up as needed
[2020-02-06 10:57] LABS: APPEARANCE,URINE SLIGHTLY-CLOUDY; BILIRUBIN,URINE NEGATIVE (NEGATIVE); COLOR,URINE YELLOW; GLUCOSE, URINE NEGATIVE (NEGATIVE); KETONES,URINE TRACE mg/dL (NEGATIVE); LEUKOCYTE ESTERASE,URINE MODERATE (NEGATIVE); NITRITE,URINE NEGATIVE (NEGATIVE); PROTEIN,URINE NEGATIVE (NEGATIVE); URINE SPECIFIC GRAVITY 1.015; UROBILINOGEN,URINE NEGATIVE mg/dL (<2.0)
[2020-02-06 11:01] LABS: RBCS (WET MOUNT) FEW RBCS SEEN; T.VAGINALIS (WET MOUNT) NO TRICHOMONAS SEEN; WBCS (WET MOUNT) 1+ WBCS SEEN; YEAST (WET MOUNT) NO YEAST SEEN
[2020-02-06 12:38] LABS: CHLAM PCR NOT DETECTED (NOT DETECT)
== END 2020-02-06 12:02 | disposition home or self-care (01) ==
LOC: ER 10:04
DX: N89.8 Other specified noninflammatory disorders of vagina (principal); R21 Rash and other nonspecific skin eruption; F17.200 Nicotine dependence, unspecified, uncomplicated
CPT/HCPCS: 81001; 81025; 87086; 87210; 87491; 87591; 99284